=== PATIENT | female | born 1940 | race Caucasian/White ===

== ENCOUNTER → 2018-03-19 | Outpatient (CLI) | payer MEDICARE ==
[~2018-03-19] MED LIST: CIPRO500 MG PO; DILTIAZEM 24HR180 MG PO; LEVOTHYROXINE112 MCG PO; LOSARTAN POTASS25 MG PO; MEDROL4 MG/DOSE-; OMEPRAZOLE40 MG PO; ULTRAM50 MG PO
--- NOTE | 2018-03-19 09:59 | Diagnostic Imaging Report ---
Exam: Brain MRI without IV contrast History: Memory loss, dizziness Comparison studies: None. Technique: Axial DWI, 3-D T1 with axial, coronal and sagittal reformats, axial T2 FLAIR, axial T2*GRE and axial T2 FS. Intravenous contrast: None. Findings: Structural lesions: No intra-or extra-axial masses. No hematomas. Atrophy: General: Mild age-appropriate generalized volume loss. Focal: No disproportionate lobar, hippocampal, mesencephalic, pontine, or cerebellar atrophy. Pires matter: Cortex: No signal abnormalities. No encephalomalacia. Basal ganglia: No atrophy or signal abnormalities. Thalami: No signal abnormalities. White matter signal intensity: No signal abnormalities. No capping or banding along the margins of the lateral ventricles. Micro hemorrhages: None. Extra axial spaces: No mass, no signal abnormalities. Ventricles: Normal in size. No hydrocephalus. Other: Skull: No bone marrow abnormalities. Vessels: Expected flow voids present in the major arteries and dural sinuses.. Sella: Normal in size. No intra-or suprasellar abnormalities. Cranio-cervical junction: No abnormalities. Patent foramen magnum. No Chiari one malformation. Paranasal sinuses and mastoids: No T2 hyperintense mucosal thickening. IMPRESSION: 1. No significant intracranial abnormalities. 2. Mild age-related generalized volume loss. No significant focal disproportionate lobar or hippocampal atrophy. Signed by: Dr. Benigno Watson M.D. on 03/19/2018 9:55 AM
== END ==
LOC: MRI 08:33
PROVIDERS: ATTEND Psychiatry & Neurology Neurology
DX: R41.3 Other amnesia (principal)
CPT/HCPCS: 70551

== ENCOUNTER → 2021-08-16 | Outpatient (CLI) | payer MEDICARE | LOC: MRI 09:24 | PROVIDERS: ATTEND Student in an Organized Health Care Education/Training Program | DX: R41.3 Other amnesia (principal) | CPT/HCPCS: 70551 ==